=== PATIENT | female | born 1990 | race Caucasian/White ===

== ENCOUNTER 2022-05-17 12:03 | Day surgery (SDC) | payer BC ==
[2022-05-16 11:47] VITALS: BMI 29.0
[~2022-05-17 12:03] MED LIST: FLU VACC QS2022-23(6MOS UP)/PF 60 MCG/0.5 ML SYRINGE IM ONE
[2022-05-17] MEDS ORDERED: Sodium Bicarbonate 2.5 MEQ/5 ML VIAL ONE (12:49)
[2022-05-17] MEDS ORDERED: Lidocaine 2% PF 5 ML VIAL ONE (12:49)
== END 2022-05-17 13:41 | disposition home or self-care (01) ==
LOC: ULT 12:03
PROVIDERS: ATTEND Student in an Organized Health Care Education/Training Program
PROC: 0G9G3ZX Drainage of Left Thyroid Gland Lobe, Percutaneous Approach, Diagnostic (ICD-10-PCS; principal; 2022-05-17)
DX: E04.1 Nontoxic single thyroid nodule (principal); Z79.890 Hormone replacement therapy; Z79.899 Other long term (current) drug therapy
CPT/HCPCS: 10005; 88173; J2001